=== PATIENT | male | born 1960 | race Caucasian/White ===

== ENCOUNTER 2016-09-11 10:08 | Inpatient (IN) | payer OTHER ==
[~2016-09-11] VITALS: Ht 162.6 cm; Wt 70.9 kg
--- NOTE | 2016-09-11 11:22 | DIAGNOSTIC IMAGING REPORT ---
PROCEDURE: XR CHEST 2 VIEW INDICATION: SHORTNESS OF BREATH TECHNIQUE: PA and lateral views. COMPARISON: None. FINDINGS: Right lower lobe infiltrate and a right pleural effusion. Left lung is clear. Heart size normal. Pacemaker is in place and sternotomy wires. IMPRESSION: 1. Right lower lobe infiltrate and a right pleural effusion.
--- NOTE | 2016-09-11 12:24 | ED NURSING NOTES ---
Clinical Report - Nurses [facility] [address] [place] [address] 09/11/2016 10:14 Patient: KEAGAN CLEARY JR [facility]#: [id number] TRIAGE Triage time 10:Sep 11 2016. Acuity: LEVEL 3. Chief Complaint: COUGH. UMA COMA SCORE: Uma Coma Scale: 15- eyes open spontaneously (4); best verbal response- oriented x 4 (5); best motor response- obeys commands (6). --10:33 Ottoniel Sargent R.N. 10:21 09/11/16. BP: 183/116. HR: 97. RR: 21. O2 saturation: 92%. Temp: 98.0 F. --10:33 Ottoniel Sargent R.N. Weight: 65.7 kg stated. Height/Length: 64 inches Per Patient. BMI: 24.9. --10:32 Ottoniel Sargent R.N. Medications Omeprazole Oral. --10:24 Ottoniel Sargent R.N. Lisinopril Oral. --10:24 Ottoniel Sargent R.N. Carvedilol Oral. --10:24 Ottoniel Sargent R.N. Albuterol Sulfate Oral. --10:25 Ottoniel Sargent R.N. Symbicort Inhalation. --10:25 Ottoniel Sargent R.N. Allergies No Known Drug Allergy. --10:24 Ottoniel Sargent R.N. History Arrived by private vehicle. Historian: patient. Accompanied by friend. This started yesterday. ( c/o sob started on Saturday and he has used his inhaler but it's not helping.). He has had a nasal discharge, chest congestion and difficulty breathing. No chills, headache, photophobia or sinus pain. He has not had fatigue. Denies muscle aches. PAST MEDICAL HX: Hypertension. Heart disease. Lung disease. No history of diabetes mellitus. No known contact with a sick individual. SOCIAL HX: Former smoker, end date 2009. Occasional alcohol use. No drug use. SELF HARM ASSESSMENT: A self harm assessment was performed. The patient answered "no" to the question "Have you recently felt down, depressed, or hopeless?" and "Do you have thoughts of harming or killing yourself?". FALL RISK ASSESSMENT: Fall risk assessment completed. No fall risk identified. NUTRITIONAL RISK ASSESSMENT: The nutritional risk assessment revealed no deficiencies. FUNCTIONAL ASSESSMENT: Functional assessment: no impairments noted. LEARNING NEEDS ASSESSMENT: The learning needs assessment revealed no barriers. ABUSE ASSESSMENT: Abuse assessment: (yes) The patient was asked "Do you feel safe in your home?". SKIN INTEGRITY ASSESSMENT: Skin integrity risk assessment completed. No skin integrity risk identified. --10:33 Ottoniel Sargent R.N. PROBLEMS: Low heartrate . Aortic Stenosis. Asthma. --10:28 Ottoniel Sargent R.N. COPD - Chronic Obstructive Pulmonary Disease [RuleOut]. --12:45 José Manuel Monae DO The following entry was modified by José Manuel Monae DO, 12:45 <<STRICKEN ENTRY-- COPD - Chronic Obstructive Pulmonary Disease. --10:25 Ottoniel Sargent R.N. --END STRIKE>>. ADDITIONAL SURGERIES: Appendectomy. Open heart surgery . Pacemaker. --10:28 Ottoniel Sargent R.N. Interventions ID band on patient. --10:33 Ottoniel Sargent R.N. PHYSICAL ASSESSMENT Ambulatory to room. ( Old healing wounds on left hand). GENERAL / NEURO / PSYCH: Alert. Oriented X 4. Appears in distress. HEENT: Pupils equal, round and reactive to light. Ears within normal limits. Nares within normal limits. Mouth within normal limits upon inspection. Pharynx within normal limits. Mucous membranes are pink. RESPIRATORY: Mild respiratory distress. The patient can speak in full sentences. Accessory muscle use. Wheezes bilaterally. Cough. CVS: Normal sinus rhythm noted. Capillary refill less than 2 seconds. SKIN: Skin is warm and dry. Normal skin turgor. --10:34 Ottoniel Sargent R.N. NURSING PROGRESS NOTES investment strategist, pulse oximeter and NIBP monitor placed on patient. Patient gowned. Head of bed elevated 90 degrees. Reassurance given. Call light placed in reach. Side rails up x 1. Bed placed in lowest position. Brakes of bed on. --10:35 Ottoniel Sargent R.N. 10:35 09/11/2016 Duoneb (Ipratropium-Albuterol) Neb TX Nebulizer 1 unit dose given. Given by the respiratory therapist. Allergies verified and confirmed 5 rights. --10:35 Ottoniel Sargent R.N. 10:59 09/11/2016 Site #1 started via IV in the right antecubital space with an 20g angiocath, with aseptic technique and good blood return; two attempts. Blood drawn: rainbow set. Labeled in the presence of the patient and sent to the lab. Saline lock flushed with 10 mL saline. --10:59 Ottoniel Sargent R.N. 10:09/11/2016 Started bag #1 500 mL IV Fluids IV NS (Saline); at 1000 mL/hr over 0.5 hour(s) via site #1 via dial-a-flow. Allergies verified and confirmed 5 rights. IV patency established. IV site checked: no pain, redness, or swelling. IV flushed thoroughly pre- and post-medication administration. --10:59 Ottoniel Sargent R.N. 10:59 09/11/2016 SOLU-MEDROL (MethylPREDNISolone Sodium Succ) IVP 125 mg given over 2 minute(s) via site #1. Allergies verified and confirmed 5 rights. IV patency established. IV site checked: no pain, redness, or swelling. IV flushed thoroughly pre- and post-medication administration. --10:59 Ottoniel Sargent R.N. ( h/p on chart.). --12:13 Ijeoma Vargas, ER Tech1 12:24 09/11/2016 Nitroglycerin SL Tablets 0.4 mg given. Allergies verified and confirmed 5 rights. --12:29 Ottoniel Sargent R.N. 12:35 09/11/2016 Levaquin (Levofloxacin) PO Tablets 750 mg given. Allergies verified and confirmed 5 rights. --12:35 Ottoniel Sargent R.N. 12:48 09/11/2016 Lasix IVP 40 mg given over 2 minute(s) via site #1. Allergies verified and confirmed 5 rights. IV patency established. IV site checked: no pain, redness, or swelling. IV flushed thoroughly pre- and post-medication administration. --12:48 Ottoniel Sargent R.N. 13:25. The patient is calm and resting quietly. Overall patient status is the same- he states feels the same (amb to BR and back to bed). RESPIRATORY: The patient reports cough. Mild respiratory distress present. SKIN: Skin is warm and dry. --13:25 Tessie Gregory R.N. ( overview [id number]). --13:26 Ijeoma Vargas ER Tech1 13:27 09/11/16. BP: 146/96. HR: 99. RR: 19. O2 saturation: 92% on room air. Additional comments: pt was just back in bed after going to BR. --13:27 Tessie Gregory R.N. 13:27 09/11/16. BP: 146/96. HR: 99. RR: 19. O2 saturation: 92% on room air. Additional comments: pt was just back in bed after going to BR. 13:00 09/11/16. BP: 146/96. HR: 95. RR: 18. O2 saturation: 91% on nasal cannula at 2 liters/minute. 12:30 09/11/16. BP: 158/83. HR: 86. RR: 20. O2 saturation: 94% on nasal cannula at 2 liters/minute. 12:15 09/11/16. BP: 163/108. HR: 89. RR: 19. O2 saturation: 93%. 11:30 09/11/16. BP: 152/99. HR: 87. RR: 18. O2 saturation: 91%. 11:15 09/11/16. BP: 172/101. HR: 85. RR: 16. O2 saturation: 92%. 11:00 09/11/16. BP: 170/89. HR: 87. RR: 16. O2 saturation: 90% on room air. 10:35 09/11/16. BP: 175/101. HR: 94. RR: 17. O2 saturation: 94%. --14:26 Ottoniel Sargent R.N. ( Report given to ben DELONG). --14:26 Ottoniel Sargent R.N. DISPOSITION / DISCHARGE 13:27 09/11/16. BP: 146/96. HR: 99. RR: 19. O2 saturation: 92% on room air. Additional comments: pt was just back in bed after going to . --19:14 Ottoniel Sargent R.N. Departure time: 14:14 Sep 11 2016. Admitted. --19:14 Ottoniel Sargent R.N. 13:30 09/11/2016 IV Fluids IV NS Discontinued: bag #1 infused. Total amount infused: 1000 mL. IV patency established. IV site checked: no pain, redness, or swelling. IV flushed thoroughly. --19:15 Ottoniel Sargent R.N. 14:15 09/11/2016 Site #[address] upon transfer; patent. Good blood return present. Flushed with 10 mL saline. --19:15 Ottoniel Sargent R.N. Locked/Released at 09/11/2016 19:16 by Ottoniel Sargent R.N.
--- NOTE | 2016-09-11 12:24 | ED ORDER SUMMARY ---
..... Patient: KEAGAN CLEARY JR OrderSheet [facility] VisitID: [id number] [place] [address] 56y, M Registration Date/Time: 09/11/2016 ORDER SHEET Weight: 65.7 kg (stated) Allergies: No Known Drug Allergy GENERAL ORDERS: Chest 2V (hitory of aortic valve replacement) Urgent (10:09/11/2016 PHutchinson DO) (Ack 10:39 LNations ER Tech1) Health Benefits Specialist (Continuous) (:09/11/2016 PHutchinson DO) (10:35 LWhalen R.N.) Old Records (from [facility] [place]) (:09/11/2016 PHrichinson DO) (10:59 LWhalen R.N.) UA-Culture if indicated Urgent (:09/11/2016 PHrichinson DO) (Ack 10:37 LNations ER Tech1) (12:08 LWhalen R.N.) Cardiac Panel Stat (:09/11/2016 PHutchinson DO) (Ack 10:38 LNations ER Tech1) (10:58 LWhalen R.N.) BNP Urgent (:09/11/2016 PHutchinson DO) (Ack 10:38 LNations ER Tech1) (10:58 LWhalen R.N.) D-Dimer Urgent (:09/11/2016 PHutchinson DO) (Ack 10:38 LNations ER Tech1) (10:58 LWhalen R.N.) Amylase Urgent (10:09/11/2016 PHutchinson DO) (Ack 10:38 LNations ER Tech1) (10:58 LWhalen R.N.) PT with INR Urgent (:09/11/2016 PHutchinson DO) (Ack 10:38 LNations ER Tech1) (10:58 LWhalen R.N.) TSH Urgent (:09/11/2016 PHutchinson DO) (Ack 10:38 LNations ER Tech1) (10:58 LWhalen R.N.) Urine Drug Screen Urgent (10:09/11/2016 [facility] DO) (Ack 10:38 LNations ER Tech1) (12:09 LWhalen R.N.) Lipase Urgent (:09/11/2016 [facility] DO) (Ack 10:39 LNations ER Tech1) (10:58 LWhalen R.N.) Pulse oximeter (:09/11/2016 [facility] DO) (10:35 LWhalen R.N.) EKG - ER Stat (:09/11/2016 [facility] DO) (10:35 LWhalen R.N.) Vitals (:09/11/2016 [facility] DO) (10:35 LWhalen R.N.) CTA Thorax w Cont (No) (GFR >60) Urgent (11:09/11/2016 [facility] DO) (Ack 11:42 LNations ER Tech1) (12:20 LNations ER Tech1) Blood Culture (No) (N/A) Urgent (12:09/11/2016 [facility] DO) (Ack 12:09 LNations ER Tech1) MEDICATION ORDERS: DuoNeb Neb Tx 1 unit dose (NOW) (:09/11/2016 [facility] DO) (10:35 LWhalen R.N.) NitroGLYCERIN SL 0.4 mg (NOW) (12:09/11/2016 [facility] DO) (12:29 LWhalen R.N.) Levaquin PO 750 mg (after blood culture) (12:09/11/2016 [facility] DO) (12:35 LWhalen R.N.) IV FLUIDS: IV NS : initial bolus 500 mL (1000 mL/hr), then 500 mL/hr for X2 (NOW) (:[facility]11[facility] (10:59 LWhalen R.N.) Solu-MEDROL IV 125 mg (NOW) (10:09/11/2016 [facility] DO) (10:59 LWhalen R.N.) Lasix IV 40 mg (NOW) (12:45 09/11/2016 [facility] DO) (Ack 12:45 Denisa R.N.) (12:48 Caridad العلي) ORDER SHEET NOTES: [Electronically signed by José Manuel Monae DO (14:52 09/11/2016)] [Electronically signed by Ottoniel Sargent R.N. (19:16 09/11/2016)] [Electronically locked/signed by Ottoniel Sargent R.N. (19:16 09/11/2016)]
--- NOTE | 2016-09-11 12:24 | ED CLINICAL REPORT ---
Clinical Report - Physicians/Mid Levels [facility] [address] [place] [address] 09/11/2016 10:14 Patient: KEAGAN CLEARY JR Time Seen: 10:27. Arrived- By private vehicle. Historian- patient. HISTORY OF PRESENT ILLNESS Chief Complaint: DYSPNEA. This started yesterday and is still present. It was gradual in onset and has been waxing/waning. The dyspnea is described as moderate and is worsened by being in a supine position, is improved by rest and is improved with oxygen. The patient has had moderate amounts of white sputum. No blood tinged sputum or frankly bloody sputum. No fever, sweating episodes or chills. He has had wheezing, dyspnea on exertion and mild orthopnea. (c/o sob started on Saturday and he has used his inhaler but it's not helping). Similar symptoms previously: Recent medical care: Not recently seen/assessed. REVIEW OF SYSTEMS No muscle aches, sore throat, nasal discharge, nausea or vomiting. No abdominal pain, diarrhea, black stools, bloody stools or headache. No fainting episodes, difficulty with urination, excessive urination, skin rash or enlarged lymph nodes. The patient has had sinus drainage. All systems otherwise negative, except as recorded above. PAST HISTORY See nurses notes. Heart disease. PROBLEMS: Low heart rate . Aortic Stenosis. COPD - Chronic Obstructive Pulmonary Disease. Asthma. Hypertension SURGERIES: Appendectomy. Open heart surgery - aortic valve (bovine) replacement - 03/2016. Pacemaker. Medications: Symbicort Inhalation. Albuterol Sulfate Oral. Carvedilol Oral. Lisinopril Oral. Omeprazole Oral. Allergies: No Known Drug Allergy. SOCIAL HISTORY Former smoker, end date 2009. Occasional alcohol use. No drug use. Residence: Staying in [place] now - moved from [place] about 2 weeks ago. ADDITIONAL NOTES The nursing notes have been reviewed. PHYSICAL EXAM Vital Signs: 09/11/2016 10:21 BP: 183/116. HR: 97. RR: 21. O2 saturation: 92%. Temp: 98.0 F. Appearance: Alert. Patient in moderate distress. Eyes: Eyes normal inspection. No pale conjunctivae or scleral icterus. ENT: Pharynx normal. Uvula midline. No pharyngeal erythema. The mucous membranes are not dry. Neck: Normal inspection. No jugular venous distention. Neck supple. CVS: Normal heart rate and rhythm. Heart sounds normal. Pulses normal. Respiratory: Mild respiratory distress with accessory muscle use and tachypnea. Mildly decreased air movement bilaterally. Expiratory moderate bilateral wheezes present. No retractions, splinting, stridor, rales or rhonchi. Abdomen: Soft and nontender. Back: Normal inspection. Skin: Skin warm and dry. Normal skin color. Normal skin turgor. Extremities: Extremities exhibit normal ROM. No calf tenderness. No lower extremity edema. Neuro: Oriented X 3. No motor deficit. No sensory deficit. LABS, X-RAYS, AND EKG Chest X-ray: (IMPRESSION: 1. Right lower lobe infiltrate and a right pleural effusion.). Views: PA and lateral. Technique: good. The X-rays were interpreted contemporaneously by me. The X-rays were discussed with the radiologist (via PACS note). CTA Pulmonary Arteries: No evidence of pulmonary embolism. IMPRESSION: 1. No evidence of pulmonary emboli 2. Diffuse ground-glass appearance of the lungs. Consider pulmonary edema, atypical pneumonia, nonspecific interstitial pneumonitis, desquamative interstitial pneumonia and drug 3. COPD with large bilateral bullae 4. Right middle lobe and right lower lobe pleural parenchymal scarring with evidence of old granulomatous disease 5. Aortic valvuloplasty and single lead pacemaker. The CTA was performed with contrast. The study was independently viewed by me, interpreted by the radiologist and discussed with the radiologist. Laboratory Tests: UA-Culture if indicated: (DIRK: 09/11/2016 12:05) ( MsgRcvd 09/11/2016 12:37) Final results Test Result Flag Units (Reference) URINE COLOR YELLOW URINE APPEARANCE CLEAR URINE GLUCOSE NEGATIVE (NEGATIVE) URINE BILIRUBIN NEGATIVE (NEGATIVE) URINE KETONE NEGATIVE (NEGATIVE) URINE SPECIFIC GRAVITY 1.020 (1.010-1.030) URINE PH 6.5 (5.0-8.0) URINE PROTEIN 1+ (NEGATIVE) URINE UROBILINOGEN 0.2 EU/dL (0.2-1.0) URINE NITRITE NEGATIVE (NEGATIVE) URINE BLOOD NEGATIVE (NEGATIVE) URINE LEUK ESTERASE NEGATIVE (NEGATIVE) URINE RBC NONE SEEN rbc/hpf (0-1) URINE WBC 0-1 wbc/hpf (0-1) URINE EPITHELIAL CELLS 0-1 EPI/hpf (0-5) URINE BACTERIA TRACE (<1+) (NONE SEEN) URINE COMMENT CULT NOT INDICATED URINE CULTURES ARE SET-UP BASED ON THE FOLLOWING CRITERIA:POSITIVE NITRITEPOSITIVE LEUKOCYTE ESTERASEGREATER THAN 10 WHITE BLOOD CELLSMODERATE (2+) OR GREATER BACTERIA CBC w Diff: (DIRK: 09/11/2016 10:54) ( MsgRcvd 09/11/2016 11:07) Final results Test Result Flag Units (Reference) WHITE BLOOD COUNT 10.6 K/uL (4.5-11.5) RED BLOOD COUNT 4.42 L M/uL (4.50-5.90) HEMOGLOBIN 13.8 gm/dL (13.5-17.5) HEMATOCRIT 42.1 % (41.0-53.0) MEAN CELL VOLUME 95 fL (80-100) MEAN CORPUSCULAR HGB 31 pg (26-34) MEAN CORPUSCULAR HGB CONC 33 g/dL (31-37) RED CELL DISTRIBUTION WIDTH 18.4 H % (11.6-14.8) PLATELET COUNT 266 K/uL (150-400) NEUTROPHIL % 74.9 % (50-75) LYMPH % 15.2 L % (25-40) MONO % 9.4 % (3-14) EOSINOPHIL % 0.3 % (0-4) BASOPHIL % 0.2 % (0-2) PT with INR: (DIRK: 09/11/2016 10:54) ( MsgRcvd 09/11/2016 11:11) Final results Test Result Flag Units (Reference) INR 1.0 (0.8-1.2) Low Intensity Therapy: INR 1.5-2.0 PT range 18.5-23.1Mod.Intensity Therapy: INR 2.0-3.0 PT range 23.1-31.5High Intensity Therapy: INR 2.5-3.5 PT range 27.4-35.5High Intensity Therapy 2: INR 3.0-4.0 PT range 31.5-39.3 D-DIMER QUANTITATIVE 1.72 H ug/mLFEU (0.27-0.52) The primary value of this quantitative assay relates toits negative predictive value (i.e. exclusion) of pulmonaryembolism/deep vein thrombosis/DIC.Elevated levels of d-dimer may also occur with:, age, cancer, inflammation, liver disease,post-op, infection, hematoma, coronary disease, peripheralarteriopathy, bleeding disorders and thrombolytic treatment.Results should be correlated with other clinical andradiological data.Testing Methodology: Latex Immunoassay Urine Drug Screen: (DIRK: 09/11/2016 12:05) ( [facility] 09/11/2016 12:39) Final results Test Result Flag Units (Reference) AMPHETAMINE/METHAMPHETAMINE NEGATIVE (NEGATIVE) BARBITURATE NEGATIVE (NEGATIVE) BENZODIAZEPINE NEGATIVE (NEGATIVE) CANNABINOID NEGATIVE (NEGATIVE) COCAINE NEGATIVE (NEGATIVE) ECSTASY NEGATIVE (NEGATIVE) METHADONE NEGATIVE (NEGATIVE) OPIATE NEGATIVE (NEGATIVE) The urine drug screen is a qualitative screening test fordrug overdose and abuse. All screen results should beconsidered as presumptive.Drugs screened for are as follows:BenzodiazepinesCocaineAmphetamines/MetamphetaminesTHC (Tetrahydrocannabinol)OpiatesBarbituratesEcstasyMethadonePositive results are unconfirmed. For confirmation, notifythe lab for the specimen to be sent to the reference lab.All confirmations must be performed by a differentmethodology.The ingestion of natural herbal and plant productscontaining Ephedra/Ephedra metabolites can produce in urineone or more substances capable of cross reacting withamphetamine/methamphetamine immunoassays. These testsprovide a preliminary result only. A more specificalternative chemical method must be used to obtain aconfirmed analytical result. BNP: (DIRK: 09/11/2016 10:54) ( MsgRcvd 09/11/2016 11:41) Final results Test Result Flag Units (Reference) B-TYPE NATRIURETIC PEPTIDE 813 H pg/ml (5-100) CHEM 13 PANEL: (DIRK: 09/11/2016 10:54) ( MsgRcvd 09/11/2016 11:22) Final results Test Result Flag Units (Reference) GLUCOSE 118 H mg/dL (70-110) BUN 11 mg/dL (7-18) CREATININE 1.1 mg/dL (0.6-1.3) Estimated GFR >60 mL/min Estimated GFR- >60 mL/min Note: Persistent reduction over 3 months in eGFR<60 mL/min/1.73 m2 defines CKD. Patients with eGFR values>=60 mL/min/1.73 m2 may also have CKD if evidence ofpersistent proteinuria. Additional information may be foundat www.kidney.org. SODIUM 145 mmol/L (136-145) POTASSIUM 4.0 mmol/L (3.5-5.1) CHLORIDE 103 mmol/L (98-107) CARBON DIOXIDE 32 mmol/L (21-32) CALCIUM 8.9 mg/dL (8.5-10.1) TOTAL PROTEIN 7.6 g/dL (6.4-8.2) ALBUMIN 3.5 g/dL (3.3-5.0) BILIRUBIN, TOTAL 0.6 mg/dL (0.0-1.0) ALKALINE PHOSPHATASE 139 H U/L (46-116) AST (SGOT) 71 H U/L (15-37) ALT (SGPT) 101 H U/L (12-78) CPK 211 U/L (24-260) MAGNESIUM 1.8 mg/dL (1.8-2.4) LIPASE 68 L U/L (73-393) AMYLASE 23 L U/L (25-115) TROPONIN I <0.05 ng/mL (0.00-1.5) TROPONIN REFERENCE RANGE:<0.1 NEGATIVE0.1-1.5 INDETERMINANT>1.5 POSITIVE THYROID STIMULATING HORMONE 1.737 uIU/mL (0.30-3.74) . Pulse Oximetry: 09/11/2016 10:21 O2 saturation: 92%. (FIO2 - room air). Interpretation: hypoxemia. PROGRESS AND PROCEDURES Course of Care: Nitroglycerin 0.4 mg tab x1 SL given. Normal Saline 1 liter IVPB given. Lasix 40 mg IVP given. Solu-Medrol 125 mg IVP given. DuoNeb nebulizer treatment (1 unit dose) given. Patient is stable. Physical exam findings are improved. Symptoms much better. Patient/family counseled. Old medical records ordered. Old records unavailable (from [facility], [place]). Transition orders written. Disposition: Observation in Acute Care. Condition: stable and improved. CLINICAL IMPRESSION Acute systolic, congestive heart failure. Acute exacerbation of COPD. Essential hypertension. Abnormal liver function test: AST/SGOT, ALT/SGPT and alkaline phosphatase. Possible bacterial pneumonia with hypoxemia. Vital signs recorded and reviewed; empiric antibiotics given in the ED and prescribed. No sepsis. INSTRUCTIONS Follow a low salt diet. Warnings: Further evaluation is necessary in order to recheck abnormal lab, obtain test results, conduct further tests and assess the possibility of serious illness. It is very important to follow up with a physician. GENERAL WARNINGS: Return or contact your physician immediately if your condition worsens or changes unexpectedly, if not improving as expected, or if other problems arise. Follow-up: Screening today revealed the patient's blood pressure to be in the hypertensive range. The patient should follow up with a primary care provider for blood pressure management. Follow-up with: Bang Biswas MD, [facility], [phone], [facility], [address] [place] [address] [id number] Follow up tomorrow. (Electronically signed by José Manuel Monae DO 09/11/2016 14:52)
--- NOTE | 2016-09-11 12:24 | ED ORDER SUMMARY ---
..... Patient: KEAGAN CLEARY JR OrderSheet Formerly [facility] VisitID: [id number] [place] [address] 56y, M Registration Date/Time: 09/11/2016 ORDER SHEET Weight: 65.7 kg (stated) Allergies: No Known Drug Allergy GENERAL ORDERS: Chest 2V (hitory of aortic valve replacement) Urgent (10:09/11/2016 PHutchinson DO) (Ack 10:39 LNations ER Tech1) Lab Animal Technician (Continuous) (:09/11/2016 PHutchinson DO) (10:35 LWhalen R.N.) Old Records (from [facility], [place]) (:09/11/2016 PHmechinson DO) (10:59 LWhalen R.N.) UA-Culture if indicated Urgent (:09/11/2016 PHmechinson DO) (Ack 10:37 LNations ER Tech1) (12:08 LWhalen R.N.) Cardiac Panel Stat (:09/11/2016 PHutchinson DO) (Ack 10:38 LNations ER Tech1) (10:58 LWhalen R.N.) BNP Urgent (:09/11/2016 PHutchinson DO) (Ack 10:38 LNations ER Tech1) (10:58 LWhalen R.N.) D-Dimer Urgent (:09/11/2016 PHutchinson DO) (Ack 10:38 LNations ER Tech1) (10:58 LWhalen R.N.) Amylase Urgent (10:09/11/2016 PHutchinson DO) (Ack 10:38 LNations ER Tech1) (10:58 LWhalen R.N.) PT with INR Urgent (:09/11/2016 PHutchinson DO) (Ack 10:38 LNations ER Tech1) (10:58 LWhalen R.N.) TSH Urgent (:09/11/2016 PHutchinson DO) (Ack 10:38 LNations ER Tech1) (10:58 LWhalen R.N.) Urine Drug Screen Urgent (10:09/11/2016 [facility] DO) (Ack 10:38 LNations ER Tech1) (12:09 LWhalen R.N.) Lipase Urgent (:09/11/2016 [facility] DO) (Ack 10:39 LNations ER Tech1) (10:58 LWhalen R.N.) Pulse oximeter (:09/11/2016 [facility] DO) (10:35 LWhalen R.N.) EKG - ER Stat (:09/11/2016 [facility] DO) (10:35 LWhalen R.N.) Vitals (:09/11/2016 [facility] DO) (10:35 LWhalen R.N.) CTA Thorax w Cont (No) (GFR >60) Urgent (11:09/11/2016 [facility] DO) (Ack 11:42 LNations ER Tech1) (12:20 LNations ER Tech1) Blood Culture (No) (N/A) Urgent (12:09/11/2016 [facility] DO) (Ack 12:09 LNations ER Tech1) MEDICATION ORDERS: DuoNeb Neb Tx 1 unit dose (NOW) (:09/11/2016 [facility] DO) (10:35 LWhalen R.N.) NitroGLYCERIN SL 0.4 mg (NOW) (12:09/11/2016 [facility] DO) (12:29 LWhalen R.N.) Levaquin PO 750 mg (after blood culture) (12:09/11/2016 [facility] DO) (12:35 LWhalen R.N.) IV FLUIDS: IV NS : initial bolus 500 mL (1000 mL/hr), then 500 mL/hr for X2 (NOW) [facility] (10:59 LWhalen R.N.) Solu-MEDROL IV 125 mg (NOW) (10:09/11/2016 [facility] DO) (10:59 LWhalen R.N.) Lasix IV 40 mg (NOW) (12:45 09/11/2016 [facility] DO) (Ack 12:45 Denisa R.N.) (12:48 Caridad العلي) ORDER SHEET NOTES: [Electronically signed by José Manuel Monae DO (14:52 09/11/2016)] [Electronically signed by Ottoniel Sargent R.N. (19:16 09/11/2016)] [Electronically locked/signed by Ottoniel Sargent R.N. (19:16 09/11/2016)]
--- NOTE | 2016-09-11 12:46 | DIAGNOSTIC IMAGING REPORT ---
PROCEDURE: CTA THORAX WITH CONTRAST INDICATION: SHORTNESS OF BREATH TECHNIQUE: 84 ml of Isovue 370 was injected intravenously and axial images were obtained of the entire thorax with 3D sagittal and coronal MIP reconstructions. COMPARISON: Chest x-ray 09/11/2016. FINDINGS: No evidence of pulmonary emboli. Large bullae bilaterally. Mild right hemithorax volume loss with right middle and lower lobe scarring (ladder with associated calcification). There is also posterior right lower lobe round atelectasis. Mild right pleural thickening with a few punctate pleural calcifications. Diffuse ground-glass appearance throughout the lungs. Mild right hilar adenopathy. Minor calcific atherosclerosis of the aorta and coronaries. Sternotomy, aortic valvuloplasty and single lead pacemaker. Normal heart size. Hepatic steatosis. No suspicious osseous lesions. IMPRESSION: 1. No evidence of pulmonary emboli 2. Diffuse ground-glass appearance of the lungs. Consider pulmonary edema, atypical pneumonia, nonspecific interstitial pneumonitis, desquamative interstitial pneumonia and drug 3. COPD with large bilateral bullae 4. Right middle lobe and right lower lobe pleural parenchymal scarring with evidence of old granulomatous disease 5. Aortic valvuloplasty and single lead pacemaker 6. Results discussed with Dr. Monae
[2016-09-11 14:40] VITALS: BP 158/91
--- NOTE | 2016-09-11 14:44 | HISTORY AND PHYSICAL ---
ADMITTED: 09/11/2016 CHIEF COMPLAINT: 1. Shortness of breath HISTORY OF PRESENT ILLNESS: This is a 56-year-old white male who developed shortness of breath one day ago, no chest pain, no palpitations, but the patient had a cough with whitish sputum. No fever, no chills, but the patient had sweats. This is the reason the patient came to the hospital. MEDICAL/SURGICAL HISTORY: Past medical history: Remarkable for COPD, CHF, aortic stenosis with aortic valve placement, and hypertension. Surgical history is remarkable for the aortic valve placement, which was done in 03/2016, and also appendectomy. Last hospitalization was 03/2016 for the valve surgery. MEDICATIONS: 1. Omeprazole. 2. Lisinopril. 3. Carvedilol. 4. Albuterol. 5. Symbicort, and he is not sure about the dosages of these medications. ALLERGIES: 1. NO KNOWN DRUG ALLERGY. SOCIAL HISTORY: The patient is single, has no kids. Smoked 2 packs a day for 35 years, quit 7 years ago. No history of alcohol or drug abuse. FAMILY HISTORY: Remarkable for coronary artery disease and hypertension. REVIEW OF SYSTEMS: No change in weight. No difficulty with vision or hearing. No runny nose or congestion, but cough with phlegm. Cardiopulmonary symptoms as described above. No nausea, no vomiting, no abdominal pain. Normal regular bowel movements. No dysuria, frequency or incontinence. No arthralgia or myalgia. No syncope. No localized weakness. No tingling, no numbness. No headaches. No anxiety, no depression. PHYSICAL EXAMINATION: VITAL SIGNS: Blood pressure 183/116 on the ER admission, the pulse is 97, respirations 21, oxygen is 92% on room air, and temperature is 98. GENERAL APPEARANCE: Well developed, well nourished, good body build, no acute distress at this moment. The patient is on nasal cannula oxygen. HEENT: Ears: Normal tympanic membranes. Mouth: Normal hypopharynx, no exudation, no erythema. Nose: Normal mucosa. NECK: Supple. No JVD. No carotid bruit. No palpable mass. LUNGS: Decreased air exchange over the lungs with scattered rhonchi and crackles. HEART: Regular S1 and S2. I could not hear any murmur or any artificial aortic valve snap. Regular rhythm. ABDOMEN: Soft, nontender. Bowel sounds are positive. EXTREMITIES: No edema. Good peripheral pulses. No signs of DVT or cyanosis. MUSCULOSKELETAL: Grossly within normal limits. NEUROLOGIC: Alert and oriented x3. Cranial nerves are grossly intact. No motor deficits. Pupils are equal, round, and reactive to light. Extraocular movements are intact. No nystagmus. No cerebellar signs. Deep tendon reflexes are bilateral and symmetric. LAB/IMAGING: UA is unremarkable except 1+ protein. Chest x-ray, right lower lobe infiltrate with right pleural effusion. White blood count is 10.6, hemoglobin 13.8, hematocrit is 42.1, and platelet count is 266. INR is 1. D-dimer is 1.72. Urine drug screen is negative. BNP is 813, glucose is 118, BUN is 11. Sodium is 145, potassium is 4, chloride is 103, CO2 is 32, calcium is 8.9. Liver enzymes: Alkaline phosphatase is elevated a little bit, otherwise unremarkable. Troponin I is less than 0.05, TSH 1.7, magnesium is 1.8. Lipase and amylase are normal. I do not see the EKG is done. IMPRESSION: 1. Right lower lobe pneumonia 2. Congestive heart failure 3. Hypertension 4. Aortic valve placement; the patient states that he does not take any anticoagulation PLAN: We will start the patient on Rocephin IV 1 gram daily, and also put on Lasix 40 mg IV daily, with a potassium supplement and inhalers and outpatient medications. We will do the cardiac enzyme series and consider echocardiogram. The patient will be inpatient telemetry and AC.
[2016-09-11] MEDS ORDERED: ALBUTEROL HFA60 DOSE IN (17:06)
[2016-09-11] MEDS ORDERED: PRINIVIL10 MG PO (17:17)
[2016-09-11] MEDS ORDERED: CARVEDILOL12.5 MG PO (17:17)
[2016-09-11] MEDS ORDERED: PRILOSEC20 MG PO (17:19)
[2016-09-11] MEDS ORDERED: SYMBICORT1 AE1 IN (17:20)
[2016-09-11] MEDS ORDERED: ASPIRIN ADULT L81 MG PO (17:21)
[2016-09-11 18:27] VITALS: BP 148/93
--- NOTE | 2016-09-11 19:16 | ED MAR SUMMARY ---
..... Medication Administration Record [facility] [address] [place] [address] Patient: KEAGAN CLEARY Visit ID: [id number] 56y, M Weight: 65.7 kg Height/Length: 64 in BMI: 24.9 ALLERGIES: No Known Drug Allergy Given 10:35 09/11/2016 Ottoniel Sargent R.N. Medication Administered: DUONEB [NEB TX] (IPRATROPIUM-ALBUTEROL), Dose: 1 unit dose Nebulizer Neb TX. Medication Ordered: DuoNeb Neb Tx 1 unit dose (NOW). Given 10:59 09/11/2016 Ottoniel Sargent R.N. Medication Administered: SOLU-MEDROL [IVP] (METHYLPREDNISOLONE SODIUM SUCC), Dose: 125 mg IVP over 2 minute(s), Site: #1 right AC. Medication Ordered: Solu-MEDROL IV 125 mg (NOW). Start 10:59 09/11/2016 Ottoniel Sargent R.N., Stop 13:30 09/11/2016 Ottoniel Sargent R.N. Medication Administered: IV NS (SALINE), Dose: IV Fluids over 0.5 hour(s), Rate: 1000 mL/hr, Dispensed: 500 mL bag, Site: #1 right AC. Medication Ordered: IV NS : initial bolus 500 mL (1000 mL/hr), then 500 mL/hr for X2 (NOW). Given 12:24 09/11/2016 Ottoniel Sargent R.N. Medication Administered: NITROGLYCERIN [SL], Dose: 0.4 mg Tablets SL. Medication Ordered: NitroGLYCERIN SL 0.4 mg (NOW). Given 12:35 09/11/2016 Ottoniel Sargent R.N. Medication Administered: LEVAQUIN [PO] (LEVOFLOXACIN), Dose: 750 mg Tablets PO. Medication Ordered: Levaquin PO 750 mg (after blood culture). Given 12:48 09/11/2016 Ottoniel Sargent R.N. Medication Administered: LASIX [IVP], Dose: 40 mg IVP over 2 minute(s), Site: #1 right AC. Medication Ordered: Lasix IV 40 mg (NOW).
--- NOTE | 2016-09-11 19:16 | ED MED RECONCILIATION SUMMARY ---
Patient: EVIN KEAGAN Díaz JR Medication Reconciliation Report [facility] VisitID: [id number] [address] [place] [address] 56y, M Registration Date/Time: 09/11/2016 Weight: 65.7 kg Height/Length: 64 in. BMI: 24.9 ALLERGIES: No Known Drug Allergy The patient's Home Medications are listed below: THE FOLLOWING MEDICATIONS NEED TO BE RECONCILED: Albuterol Sulfate Oral Carvedilol Oral Lisinopril Oral Omeprazole Oral Symbicort Inhalation The source(s) of the original Home Medication information: Not obtained. The following Medications were given to the patient in the Emergency Department: Duoneb [Neb Tx] Neb TX 1 unit dose, administered: 09/11/2016 10:35:00 AM IV NS IV Fluids bolus 0, then 1000 mL/hr, administered: 09/11/2016 10:59:00 AM SOLU-MEDROL [IVP] IVP 125 mg, administered: 09/11/2016 10:59:00 AM Nitroglycerin [SL] SL 0.4 mg, administered: 09/11/2016 12:24:00 PM Levaquin [PO] PO 750 mg, administered: 09/11/2016 12:35:00 PM Lasix [IVP] IVP 40 mg, administered: 09/11/2016 12:48:00 PM The following Medications were prescribed to the patient: None.
--- NOTE | 2016-09-11 19:16 | ED DISCHARGE INSTRUCTIONS ---
Patient: KAEGAN CLEARY JR General Instructions [facility] VisitID: [id number] [place] [address] 56y, M Registration Date/Time: 09/11/2016 Acute systolic, congestive heart failure. Acute exacerbation of COPD. Essential hypertension. Abnormal liver function test: AST/SGOT, ALT/SGPT and alkaline phosphatase. INSTRUCTIONS Follow a low salt diet. Warnings: Further evaluation is necessary in order to recheck abnormal lab, obtain test results, conduct further tests and assess the possibility of serious illness. It is very important to follow up with a physician. GENERAL WARNINGS: Return or contact your physician immediately if your condition worsens or changes unexpectedly, if not improving as expected, or if other problems arise. Follow-up: Screening today revealed the patient's blood pressure to be in the hypertensive range. The patient should follow up with a primary care provider for blood pressure management. Follow-up with: Bang Biswas MD, [facility], [phone], [facility], [address] [place] [address] [address] [place] [phone] Follow up tomorrow. ADDITIONAL INFORMATION High Blood Pressure --Established High Blood Pressure (Hypertension) is a chronic disease. The cause is unknown in most cases. It can usually be controlled with lifestyle changes and/or medicines. Symptoms of high blood pressure may include headache, dizziness, visual changes, chest pain and shortness of breath. Sometimes it causes no symptoms at all. However, even if there are no symptoms, untreated high blood pressure increases the risk of heart attack, also known as acute myocardial infarction, or AMI, and stroke. It is a serious health risk and should not be ignored. A normal blood pressure is 120/80 or less. The first (top) number is the "systolic" pressure. The second (bottom) number is the "diastolic" pressure. Hypertension exists when either the top number is 140 or higher, OR the bottom number is 90 or higher on repeated measurements. Home Care: All patients with high blood pressure should do the following to lower their pressure. If you are on medicines, then these methods may reduce or eliminate your need for medicines in the future. Begin a weight loss program if you are overweight. Reduce your salt intake. Avoid high salt foods (olives, pickles, smoked meats, salted potato chips, etc.). Do not add salt to your food at the table. Use only small amounts of salt when cooking. Begin an exercise program. Discuss with your doctor what type of exercise program would be best for you. It doesn't have to be difficult. Even brisk walking for 20 minutes three times a week is a good form of exercise. Avoid medicines which contain heart stimulants. This includes many cold and sinus decongestant pills and sprays as well as diet pills. Check the warnings about hypertension on the label. Stimulants such as amphetamine or cocaine could be lethal for someone with hypertension. Never take these. Limit your caffeine intake or switch to caffeine-free products. Stop smoking. If you are a long-time smoker, this can be hard. Enroll in a stop-smoking program to improve your chance of success. Learning how to handle stress better is an important part of any program to lower blood pressure. Learn about relaxation methods such as meditation, yoga or biofeedback. If medicines were prescribed, take them exactly as directed. Missing doses may cause your blood pressure get out of control. Consider buying an automatic blood pressure machine (available at most pharmacies). Use this to monitor your blood pressure at home and report the results to your doctor. Follow Up: Regular visits to your own physician for blood pressure checks and medicine adjustment is an important part of your care. Make a follow-up appointment as directed by our staff. Get Prompt Medical Attention if any of the following occur: Chest pain or shortness of breath Severe headache Throbbing or rushing sound in the ears Nosebleed Sudden severe abdominal pain Extreme drowsiness, confusion or fainting Dizziness or vertigo (dizziness with spinning sensation) Weakness of an arm or leg or one side of the face Difficulty with speech or vision You have been given the following additional information: Hypertension, Established (Electronically signed by José Manuel Monae DO 09/11/2016 14:52)
--- NOTE | 2016-09-11 19:16 | ED MAR SUMMARY ---
..... Medication Administration Record [facility] [address] [place] [address] Patient: KEAGAN CLEARY Visit ID: [id number] 56y, M Weight: 65.7 kg Height/Length: 64 in BMI: 24.9 ALLERGIES: No Known Drug Allergy Given 10:35 09/11/2016 Ottoniel Sargent R.N. Medication Administered: DUONEB [NEB TX] (IPRATROPIUM-ALBUTEROL), Dose: 1 unit dose Nebulizer Neb TX. Medication Ordered: DuoNeb Neb Tx 1 unit dose (NOW). Given 10:59 09/11/2016 Ottoniel Sargent R.N. Medication Administered: SOLU-MEDROL [IVP] (METHYLPREDNISOLONE SODIUM SUCC), Dose: 125 mg IVP over 2 minute(s), Site: #1 right AC. Medication Ordered: Solu-MEDROL IV 125 mg (NOW). Start 10:59 09/11/2016 Ottoniel Sargent R.N., Stop 13:30 09/11/2016 Ottoniel Sargent R.N. Medication Administered: IV NS (SALINE), Dose: IV Fluids over 0.5 hour(s), Rate: 1000 mL/hr, Dispensed: 500 mL bag, Site: #1 right AC. Medication Ordered: IV NS : initial bolus 500 mL (1000 mL/hr), then 500 mL/hr for X2 (NOW). Given 12:24 09/11/2016 Ottoniel Sargent R.N. Medication Administered: NITROGLYCERIN [SL], Dose: 0.4 mg Tablets SL. Medication Ordered: NitroGLYCERIN SL 0.4 mg (NOW). Given 12:35 09/11/2016 Ottoniel Sargent R.N. Medication Administered: LEVAQUIN [PO] (LEVOFLOXACIN), Dose: 750 mg Tablets PO. Medication Ordered: Levaquin PO 750 mg (after blood culture). Given 12:48 09/11/2016 Ottoniel Sargent R.N. Medication Administered: LASIX [IVP], Dose: 40 mg IVP over 2 minute(s), Site: #1 right AC. Medication Ordered: Lasix IV 40 mg (NOW).
--- NOTE | 2016-09-11 19:16 | ED DISCHARGE INSTRUCTIONS ---
Patient: KEAGAN CLEARY JR General Instructions [facility] VisitID: [id number] [place] [address] 56y, M Registration Date/Time: 09/11/2016 Acute systolic, congestive heart failure. Acute exacerbation of COPD. Essential hypertension. Abnormal liver function test: AST/SGOT, ALT/SGPT and alkaline phosphatase. INSTRUCTIONS Follow a low salt diet. Warnings: Further evaluation is necessary in order to recheck abnormal lab, obtain test results, conduct further tests and assess the possibility of serious illness. It is very important to follow up with a physician. GENERAL WARNINGS: Return or contact your physician immediately if your condition worsens or changes unexpectedly, if not improving as expected, or if other problems arise. Follow-up: Screening today revealed the patient's blood pressure to be in the hypertensive range. The patient should follow up with a primary care provider for blood pressure management. Follow-up with: Bang Biswas MD, [facility], [phone], [facility], [address] [place] [address] [address] [place] [address] Follow up tomorrow. ADDITIONAL INFORMATION High Blood Pressure --Established High Blood Pressure (Hypertension) is a chronic disease. The cause is unknown in most cases. It can usually be controlled with lifestyle changes and/or medicines. Symptoms of high blood pressure may include headache, dizziness, visual changes, chest pain and shortness of breath. Sometimes it causes no symptoms at all. However, even if there are no symptoms, untreated high blood pressure increases the risk of heart attack, also known as acute myocardial infarction, or AMI, and stroke. It is a serious health risk and should not be ignored. A normal blood pressure is 120/80 or less. The first (top) number is the "systolic" pressure. The second (bottom) number is the "diastolic" pressure. Hypertension exists when either the top number is 140 or higher, OR the bottom number is 90 or higher on repeated measurements. Home Care: All patients with high blood pressure should do the following to lower their pressure. If you are on medicines, then these methods may reduce or eliminate your need for medicines in the future. Begin a weight loss program if you are overweight. Reduce your salt intake. Avoid high salt foods (olives, pickles, smoked meats, salted potato chips, etc.). Do not add salt to your food at the table. Use only small amounts of salt when cooking. Begin an exercise program. Discuss with your doctor what type of exercise program would be best for you. It doesn't have to be difficult. Even brisk walking for 20 minutes three times a week is a good form of exercise. Avoid medicines which contain heart stimulants. This includes many cold and sinus decongestant pills and sprays as well as diet pills. Check the warnings about hypertension on the label. Stimulants such as amphetamine or cocaine could be lethal for someone with hypertension. Never take these. Limit your caffeine intake or switch to caffeine-free products. Stop smoking. If you are a long-time smoker, this can be hard. Enroll in a stop-smoking program to improve your chance of success. Learning how to handle stress better is an important part of any program to lower blood pressure. Learn about relaxation methods such as meditation, yoga or biofeedback. If medicines were prescribed, take them exactly as directed. Missing doses may cause your blood pressure get out of control. Consider buying an automatic blood pressure machine (available at most pharmacies). Use this to monitor your blood pressure at home and report the results to your doctor. Follow Up: Regular visits to your own physician for blood pressure checks and medicine adjustment is an important part of your care. Make a follow-up appointment as directed by our staff. Get Prompt Medical Attention if any of the following occur: Chest pain or shortness of breath Severe headache Throbbing or rushing sound in the ears Nosebleed Sudden severe abdominal pain Extreme drowsiness, confusion or fainting Dizziness or vertigo (dizziness with spinning sensation) Weakness of an arm or leg or one side of the face Difficulty with speech or vision You have been given the following additional information: Hypertension, Established (Electronically signed by José Manuel Monae DO 09/11/2016 14:52)
--- NOTE | 2016-09-11 19:16 | ED MED RECONCILIATION SUMMARY ---
Patient: EVIN KEAGAN Díaz JR Medication Reconciliation Report [facility] VisitID: [id number] [address] [place] [address] 56y, M Registration Date/Time: 09/11/2016 Weight: 65.7 kg Height/Length: 64 in. BMI: 24.9 ALLERGIES: No Known Drug Allergy The patient's Home Medications are listed below: THE FOLLOWING MEDICATIONS NEED TO BE RECONCILED: Albuterol Sulfate Oral Carvedilol Oral Lisinopril Oral Omeprazole Oral Symbicort Inhalation The source(s) of the original Home Medication information: Not obtained. The following Medications were given to the patient in the Emergency Department: Duoneb [Neb Tx] Neb TX 1 unit dose, administered: 09/11/2016 10:35:00 AM IV NS IV Fluids bolus 0, then 1000 mL/hr, administered: 09/11/2016 10:59:00 AM SOLU-MEDROL [IVP] IVP 125 mg, administered: 09/11/2016 10:59:00 AM Nitroglycerin [SL] SL 0.4 mg, administered: 09/11/2016 12:24:00 PM Levaquin [PO] PO 750 mg, administered: 09/11/2016 12:35:00 PM Lasix [IVP] IVP 40 mg, administered: 09/11/2016 12:48:00 PM The following Medications were prescribed to the patient: None.
[2016-09-11 22:18] VITALS: BP 132/76
[2016-09-12] VITALS (7 sets, daily range): BP systolic 130–171; BP diastolic 62–99
--- NOTE | 2016-09-12 08:18 | Progress Note ---
Subjective General doing much better breathing improved but not back to basline mild cough no sputum, no cp no palpitaion, no dizziness,no fever or chills but having sweats Physical Exam Vital Signs / I&Os Vital Signs Date Time Temp Pulse Resp B/P Pulse O2 O2 Flow FiO2 Ox Delivery Rate 09/12 626 98.1 57 16 157/93 95 Room Air 09/12 0229 98.1 72 15 130/79 94 09/12 0101 0.0 09/12 0053 0.0 09/11 2218 98.4 79 18 132/76 95 Nasal Cannula 09/11 1829 93 09/11 1827 98.6 93 20 148/93 92 09/11 1605 93 09/11 1520 0.0 09/11 1440 98.1 104 22 158/91 92 Nasal 0.0 Cannula I&O 09/12 0000 09/11 1600 09/11 0800 Intake Total 655 Output Total 400 Balance 255 General Appearance No acute distress Lungs crackles in both bases Cardiovascular Normal exam, Regular rate and rhythm, Normal S1 and S2 Abdomen Normal bowel sounds, Soft, No tenderness Extremities No edema LAB Results Laboratory Tests 09/12 09/12 09/11 09/11 0530 0530 2155 1440 Chemistry Plasma Sodium (136 - 145 mmol/L) 141 Plasma Potassium (3.5 - 5.1 mmol/L) 3.6 Plasma Chloride (98 - 107 mmol/L) 105 CO2 (Enzymatic) (21 - 32 mmol/L) 30 BUN (7 - 18 mg/dL) 19 Creatinine (0.6 - 1.3 mg/dL) 1.2 Est GFR ( Amer) (mL/min) >60 Est GFR (Non-Af Amer) (mL/min) >60 Glucose (70 - 110 mg/dL) 125 Plasma Calcium (8.5 - 10.1 mg/dL) 8.5 Troponin (0.00 - 1.5 ng/mL) <0.05 <0.05 <0.05 Hematology WBC (4.5 - 11.5 K/uL) 8.1 RBC (4.50 - 5.90 M/uL) 4.13 Hgb (13.5 - 17.5 gm/dL) 12.9 Hct (41.0 - 53.0 %) 39.5 MCV (80 - 100 fL) 96 MCH (26 - 34 pg) 31 RDW (11.6 - 14.8 %) 18.0 Neut % (Auto) (50 - 75 %) 68.8 Lymph % (Auto) (25 - 40 %) 21.6 [place] % (Auto) (3 - 14 %) 9.3 Eos % (Auto) (0 - 4 %) 0.1 Baso % (Auto) (0 - 2 %) 0.2 Plt Count, EDTA (150 - 400 K/uL) 249 PUBS MCHC (31 - 37 g/dL) 33 09/11 05 05 1205 1054 1054 Chemistry Plasma Sodium (136 - 145 mmol/L) 145 Plasma Potassium (3.5 - 5.1 mmol/L) 4.0 Plasma Chloride (98 - 107 mmol/L) 103 CO2 (Enzymatic) (21 - 32 mmol/L) 32 BUN (7 - 18 mg/dL) 11 Creatinine (0.6 - 1.3 mg/dL) 1.1 Est GFR ( Amer) (mL/min) >60 Est GFR (Non-Af Amer) (mL/min) >60 Glucose (70 - 110 mg/dL) 118 Plasma Calcium (8.5 - 10.1 mg/dL) 8.9 Plasma Magnesium (1.8 - 2.4 mg/dL) 1.8 Total Bilirubin (0.0 - 1.0 mg/dL) 0.6 AST (15 - 37 U/L) 71 ALT (12 - 78 U/L) 101 Alkaline Phosphatase (46 - 116 U/L) 139 Creatine Kinase (24 - 260 U/L) 211 Troponin (0.00 - 1.5 ng/mL) <0.05 B-Natriuretic Peptide (5 - 100 pg/ml) 813 Total Protein (6.4 - 8.2 g/dL) 7.6 Albumin (3.3 - 5.0 g/dL) 3.5 Amylase (25 - 115 U/L) 23 Lipase (73 - 393 U/L) 68 TSH 3rd Generation (0.30 - 3.74 uIU/mL) 1.737 Coagulation INR (0.8 - 1.2) 1.0 D-Dimer, Quantitative (0.27 - 0.52 ug/mLFEU) 1.72 Hematology WBC (4.5 - 11.5 K/uL) 10.6 RBC (4.50 - 5.90 M/uL) 4.42 Hgb (13.5 - 17.5 gm/dL) 13.8 Hct (41.0 - 53.0 %) 42.1 MCV (80 - 100 fL) 95 MCH (26 - 34 pg) 31 RDW (11.6 - 14.8 %) 18.4 Neut % (Auto) (50 - 75 %) 74.9 Lymph % (Auto) (25 - 40 %) 15.2 [place] % (Auto) (3 - 14 %) 9.4 Eos % (Auto) (0 - 4 %) 0.3 Baso % (Auto) (0 - 2 %) 0.2 Plt Count, EDTA (150 - 400 K/uL) 266 PUBS MCHC (31 - 37 g/dL) 33 Toxicology Urine Opiates Screen (NEGATIVE) NEGATIVE Urine Methadone Screen (NEGATIVE) NEGATIVE Ur Barbiturates Screen (NEGATIVE) NEGATIVE U Amphetamin/Meth Scrn (NEGATIVE) NEGATIVE MDMA (Ecstasy) Screen (NEGATIVE) NEGATIVE U Benzodiazepines Scrn (NEGATIVE) NEGATIVE Urine Cocaine Screen (NEGATIVE) NEGATIVE U Cannabinoids Screen (NEGATIVE) NEGATIVE Urines Urine Color YELLOW Urine Appearance CLEAR Urine pH (5.0 - 8.0) 6.5 Ur Specific [place] (1.010 - 1.030) 1.020 Urine Protein (NEGATIVE) 1+ Urine Ketones (NEGATIVE) NEGATIVE Urine Blood (NEGATIVE) NEGATIVE Urine Nitrite (NEGATIVE) NEGATIVE Urine Bilirubin (NEGATIVE) NEGATIVE Urine Urobilinogen (0.2 - 1.0 EU/dL) 0.2 Ur Leukocyte Esterase (NEGATIVE) NEGATIVE Urine RBC (0 - 1 rbc/hpf) NONE SEEN Urine WBC (0 - 1 wbc/hpf) 0-1 Ur Epithelial Cells (0 - 5 EPI/hpf) 0-1 Urine Bacteria (NONE SEEN) TRACE (<1+) Urine Glucose (NEGATIVE) NEGATIVE Urine Comment CULT NOT INDICATED 09/11 103 Chemistry Amylase Cancelled Lipase Cancelled TSH 3rd Generation Cancelled Microbiology Date/Time Procedure - Status Source Growth 09/12 2123 Respiratory Culture - RES SPUTUM 09/12 2123 Culture and Gram Stain - RES SPUTUM 09/11 1234 Blood Culture - RECD BLOOD 09/11 123 Blood Culture - RECD BLOOD Assessment and Plan Problem List 1. Acute exacerbation of CHF (congestive heart failure) Plan continue lasix IV monitor electrolytes, continue outpt meds, improving 2. Pneumonia Plan on Rocephine 3. COPD with acute exacerbation Plan stable, continue inhalers
--- NOTE | 2016-09-12 15:54 | DIAGNOSTIC IMAGING REPORT ---
REFERRING PHYSICIAN/PROVIDER: Magno Clancy MD CONSULTING [facility] OPERATOR: Panda Cadena MD INDICATION: CHF Procedure: A two-dimensional transthoracic echocardiogram with color flow and Doppler was performed. The study quality was technically adequate. The patient was in normal sinus rhythm during the exam. Left Ventricle: The left ventricle is normal in size. Left ventricular wall thickness is mildly increased. There is no ventricular septal defect visualized. Left ventricular systolic function is borderline reduced. Left ventricular ejection fraction is estimated to be 50%. There is hypokinesis along the inferior wall and basal inferolateral wall as well. Right Ventricle: The right ventricle is normal in size and function. There is a pacemaker lead in the right ventricle. Atria: Both atria are normal in size. The interatrial septum is intact with no evidence for an atrial septal defect. Mitral Valve: There is mild to moderate mitral annular calcification. The mitral valve leaflets appear borderline thickened, but open well. There is no mitral regurgitation. Aortic Valve: There is a bioprosthetic aortic valve. The gradients through the prosthetic aortic valve are within the normal range for this type of valve. The peak aortic velocity is 2.01 m/sec. The aortic valve mean gradient is 9.0 mmHg. There is no aortic regurgitation. Tricuspid Valve: The tricuspid valve is not well visualized, but is grossly normal. There is a trace or physiologic amount of tricuspid regurgitation. Pulmonary artery pressures cannot be estimated because of the lack of a measurable TR jet velocity. Pulmonic Valve: The pulmonic valve is not well visualized. There is a trace or physiologic amount of pulmonic regurgitation. There is no significant valvular heart disease. Great Vessels: The aortic root is normal size. The ascending aorta is normal in size. The IVC is of normal diameter and collapses greater than 50% with a sniff. This suggests a low right atrial pressure of 3 mm Hg. Pericardium/ Pleura There is no pericardial effusion. IMPRESSION: Left ventricular wall thickness is mildly increased. Left ventricular systolic function is borderline reduced. Left ventricular ejection fraction is estimated to be 50%. There is hypokinesis along the inferior wall and basal inferolateral wall as well. The right ventricle is normal in size and function. There is a pacemaker lead in the right ventricle. Pulmonary artery pressures cannot be estimated because of the lack of a measurable TR jet velocity. Both atria are normal in size. There appears to be a bioprosthetic aortic valve. The gradients through the prosthetic aortic valve are within the normal range for this type of valve. The peak aortic velocity is 2.01 m/sec. The aortic valve mean gradient is 9.0 mmHg. The aortic root is normal size.
[2016-09-13 02:24] VITALS: BP 175/91; BP 176/102
[2016-09-13 06:49] VITALS: BP 182/102
[2016-09-13] MEDS ORDERED: LASIX40 MG PO (09:02)
[2016-09-13] MEDS ORDERED: CARVEDILOL25 MG PO (09:02)
[2016-09-13] MEDS ORDERED: LEVAQUIN500 MG PO (09:02)
[2016-09-13] MEDS ORDERED: KLOR-CON 1010 MEQ PO (09:02)
--- NOTE | 2016-09-13 09:33 | DISCHARGE SUMMARY ---
ADMIT DATE: 09/11/2016 DISCHARGE DATE: 09/13/2016 DISCHARGE DIAGNOSES: 1. Exacerbation of congestive heart failure 2. Pneumonia 3. Chronic obstructive pulmonary disease 4. Hypertension. BRIEF HISTORY: This is a 56-year-old white male who was admitted on 09/11/2016. He presented to the emergency department with shortness of breath, started 1 day prior to admission. No chest pain. No palpitations. The patient had some cough with white sputum. No fever or chills, but the patient has been sweating profusely. HOSPITAL COURSE: The patient was admitted to hospital and started on Rocephin IV and also was put on Lasix 40 mg daily, with a potassium supplement, and continued on outpatient medication, including inhalers. Cardiac enzyme series was obtained, which was unremarkable. Also, echocardiogram was done which shows an ejection fraction of 50%. The patient states that it was 25% in the prior echocardiogram. So the patient is doing much better now. He states that he is back to his baseline breathing. He is ambulating fine, eating and drinking. Still has some cough with sputum. No fever, no chills. No chest pain. No heart racing. PHYSICAL EXAMINATION: Vitals: Temperature is 97.9. Pulse is 87. Respirations 20 , blood pressure is 182/102, and oxygen saturation is 96% on room air. Lungs: Decreased air exchange in the base. Heart: Regular S1 and S2. No murmur that I heard, even though the patient has an artificial aortic valve. Abdomen is soft and nontender. Bowel sounds are positive. Extremities: No edema. LAB/IMAGING: White blood count is 7.7, hemoglobin 13.4, hematocrit is 41.2, platelet count is 272. Sodium is 147, potassium is 3.6, chloride is 106, CO2 is 29, BUN is 22, creatinine 1.1, calcium is 8.6. DISCHARGE INSTRUCTIONS/MEDICATIONS: The patient will be discharged home. I will increase carvedilol to 6.5 mg twice a day for better blood pressure control, and the patient was instructed to check his blood pressures 3 times a week and have log to present to his primary care physician for further adjustment. I also put the patient on Levaquin 500 mg daily for 7 days and Lasix 40 mg daily, with a potassium supplement of 20 mEq daily. The patient will continue on albuterol inhaler, lisinopril 20 mg b.i.d., Advair inhaler twice a day, and Prilosec 20 mg daily. The patient will follow up with Dr. Biswas in [place] within 1 week. Also follow up patient with a multiple slide operator in the [facility] as an outpatient. The patient can make an appointment or can be referred by his primary care doctor, Dr. Biswas, as an outpatient. Note, the patient actually has been taking Carvedilol 12.5 mg twice a day at home, so I bumped it up to 25 mg twice a day. The patient also will set up to see a multiple slide operator and his primary care physician, Dr. Biswas, as an outpatient.
== END 2016-09-13 11:27 | disposition home or self-care (01) | DRG 291 ==
LOC: ED SRH 10:08 → TRANS SRH 12:28 → ACUTE2 SRH 14:36
PROVIDERS: ADMIT Emergency Medicine
DX: I11.0 Hypertensive heart disease with heart failure (principal); I50.9 Heart failure, unspecified; J44.0 Chronic obstructive pulmonary disease with (acute) lower respiratory infection; J18.9 Pneumonia, unspecified organism; J44.1 Chronic obstructive pulmonary disease with (acute) exacerbation; Z87.891 Personal history of nicotine dependence; Z95.2 Presence of prosthetic heart valve
CPT/HCPCS: 90004; 90047; 90065; 90074; 90100; 90127; 90309; 90616; 91320; 91556; 92235; 92530; 92610; 92720; 92760; 92761; 92762; 92763; 92764; 92765; 92766; 92767; 93140; 94060; 95059